=== PATIENT | female | born 2000 | race Caucasian/White ===

== ENCOUNTER 2019-07-17 09:34 | Emergency (ER) | payer OTHER ==
[~2019-07-17] VITALS: Ht 172 cm; Wt 131.6 kg
[2019-07-17] MEDS ORDERED: BREX0.5T (09:56)
[2019-07-17] MEDS ORDERED: LEVO50TA6 (09:56)
--- NOTE | 2019-07-17 11:00 | NUR ---
ASSUMED CARE OF THIS PATIENT AT THIS TIME. INTRODUCED SELF. PATIENT IS A&OX4, DENIES NEEDS AT THIS TIME. MONITORING MAINTAINED. PATIENT IS CALM IN ROOM AND FATHER IS ESCORTED TO BE WITH HIS DAUGHTER WITH HER PERMISSION.
--- NOTE | 2019-07-17 11:01 | ED Psychosocial ---
General Chief Complaint: Psych/Social Disorder Stated Complaint: SHOOTING PAINS IN ARM,HARD TO BREATE,LIGHTHEADED Nursing Triage Note: TO ROOM 08 VIA AMB FROM HOME. STATES HER RIGHT ARM HAS HAD NUMBNESS AND TINGLING X 3 MONTHS AND THIS MORNING WOKE UP WITH THAT FEELING IN HER LEFT ARM CAUSING HER TO BECOME ANXIOUS WITH SOA AND TIGHTNESS IN HER CHEST. Source: patient Exam Limitations: no limitations History of Present Illness Date Seen by Provider: Jul 17, 2019 Time Seen by Provider: 10:45 Initial Comments There are bilateral arm pain. This is been for about 3 months she developed some right arm pain upon awakening that radiates from her neck although down to her fingertips involving all fingers. The past few days is also involving the left upper arm. The pain is quite intense. She also states that she has some tightness in her chest, she feels confused and anxious area she has a headache, when asked how often she gets headaches she states "I don't know" Timing/Duration: constant Severity: moderate Associated Symptoms: anxiety Allergies and Home Medications Allergies Coded Allergies: morphine (Verified Allergy, Severe, BRADYCARDIA, 07/17/19) Patient Home Medication List Home Medication List Reviewed: Yes Review of Systems Constitutional: see HPI EENTM: see HPI Respiratory: no symptoms reported Cardiovascular: no symptoms reported Genitourinary: no symptoms reported Musculoskeletal: see HPI Skin: no symptoms reported Psychiatric/Neurological: See HPI, Anxiety Past Qbghrxo-Qdmmqh-Hcphes Hx Patient Social History Alcohol Use: Denies Use Recreational Drug Use: No Smoking Status: Current Everyday Smoker Recent Foreign Travel: No Contact w/Someone Who Travel: No Recent Infectious Disease Expo: No Recent Hopitalizations: No Seasonal Allergies Seasonal Allergies: No Past Medical History Surgeries: Yes (JAW, DENTAL) Respiratory: No Cardiac: No Neurological: No Genitourinary: No Gastrointestinal: No Musculoskeletal: No Endocrine: Yes Hypothyroidsim HEENT: No Cancer: No Psychosocial: Yes Anxiety, Depression Integumentary: No Physical Exam Vital Signs - First Documented 07/17/19 09:42 Temp 36.7 Pulse 74 Resp 16 B/P (MAP) 128/77 (94) Pulse Ox 98 O2 Delivery Room Air Capillary Refill : Less Than 3 Seconds Height, Weight, BMI Height: '" Weight: lbs. oz. kg; 44.00 BMI Method: General Appearance: WD/WN, no apparent distress, obese, other (flat affect) HEENT: PERRL/EOMI, normal ENT inspection, TMs normal Neck: non-tender, full range of motion Respiratory: normal breath sounds, no respiratory distress, no accessory muscle use Cardiovascular: regular rate, rhythm, no murmur Gastrointestinal: normal bowel sounds, non tender, soft Extremities: normal range of motion, non-tender Neurologic/Psychiatric: alert, normal mood/affect, oriented x 3 Appearance/Memory: appropriate appearance, appropriate insight, neat Behavior/Eye Contact: cooperative, good eye contact Skin: normal color, warm/dry Elbow flexion and extension strength 5 out of 5 bilaterally, med admin strength 5 out of 5 bilaterally Progress/Results/Core Measures Results/Orders Lab Results Laboratory Tests Test 07/17/19 11:02 07/17/19 11:10 Range/Units Urine Color YELLOW Urine Clarity CLEAR Urine pH 5.5 5-9 Urine Specific [place] 1.010 L 1.016-1.022 Urine Protein NEGATIVE NEGATIVE Urine Glucose (UA) NEGATIVE NEGATIVE Urine Ketones NEGATIVE NEGATIVE Urine Nitrite NEGATIVE NEGATIVE Urine Bilirubin NEGATIVE NEGATIVE Urine Urobilinogen 0.2 < = 1.0 MG/DL Urine Leukocyte Esterase NEGATIVE NEGATIVE Urine RBC (Auto) NEGATIVE NEGATIVE Urine RBC NONE /HPF Urine WBC NONE /HPF Urine Squamous Epithelial Cells 0-5 /HPF Urine Crystals NONE /LPF Urine Bacteria FEW H /HPF Urine Casts NONE /LPF Urine Mucus NEGATIVE /LPF Urine Culture Indicated YES Urine Opiates Screen NEGATIVE NEGATIVE Urine Oxycodone Screen NEGATIVE NEGATIVE Urine Methadone Screen NEGATIVE NEGATIVE Urine Propoxyphene Screen NEGATIVE NEGATIVE Urine Barbiturates Screen NEGATIVE NEGATIVE Ur Tricyclic Antidepressants Screen NEGATIVE NEGATIVE Urine Phencyclidine Screen NEGATIVE NEGATIVE Urine Amphetamines Screen NEGATIVE NEGATIVE Urine Methamphetamines Screen NEGATIVE NEGATIVE Urine Benzodiazepines Screen NEGATIVE NEGATIVE Urine Cocaine Screen NEGATIVE NEGATIVE Urine Cannabinoids Screen NEGATIVE NEGATIVE White Blood Count 7.9 4.3-11.0 10^3/uL Red Blood Count 5.13 4.35-5.85 10^6/uL Hemoglobin 14.9 11.5-16.0 G/DL Hematocrit 44 35-52 % Mean Corpuscular Volume 85 80-99 FL Mean Corpuscular Hemoglobin 29 25-34 PG Mean Corpuscular Hemoglobin Concent 34 32-36 G/DL Red Cell Distribution Width 13.5 10.0-14.5 % Platelet Count 227 130-400 10^3/uL Mean Platelet Volume 10.4 7.4-10.4 FL Neutrophils (%) (Auto) 57 42-75 % Lymphocytes (%) (Auto) 33 12-44 % Monocytes (%) (Auto) 7 0-12 % Eosinophils (%) (Auto) 2 0-10 % Basophils (%) (Auto) 0 0-10 % Neutrophils # (Auto) 4.5 1.8-7.8 X 10^3 Lymphocytes # (Auto) 2.6 1.0-4.0 X 10^3 Monocytes # (Auto) 0.6 0.0-1.0 X 10^3 Eosinophils # (Auto) 0.2 0.0-0.3 10^3/uL Basophils # (Auto) 0.0 0.0-0.1 10^3/uL Sodium Level 139 135-145 MMOL/L Potassium Level 4.0 3.6-5.0 MMOL/L Chloride Level 110 H 98-107 MMOL/L Carbon Dioxide Level 17 L 21-32 MMOL/L Anion Gap 12 5-14 MMOL/L Blood Urea Nitrogen 8 7-18 MG/DL Creatinine 0.75 0.60-1.30 MG/DL Estimat Glomerular Filtration Rate > 60 BUN/Creatinine Ratio 11 Glucose Level 97 70-105 MG/DL Calcium Level 9.2 8.5-10.1 MG/DL Corrected Calcium 9.1 8.5-10.1 MG/DL Total Bilirubin 0.3 0.1-1.0 MG/DL Aspartate Amino Transf (AST/SGOT) 28 5-34 U/L Alanine Aminotransferase (ALT/SGPT) 40 0-55 U/L Alkaline Phosphatase 68 40-136 U/L Total Protein 7.1 6.4-8.2 GM/DL Albumin 4.1 3.2-4.5 GM/DL Serum Test, Qualitative NEGATIVE NEGATIVE My Orders Orders - MATEO QUINTANILLA APRN Cbc With Automated Diff (07/17/19 10:46) Comprehensive Metabolic Panel (07/17/19 10:46) Hcg,Qualitative Serum (07/17/19 10:46) Ua Culture If Indicated (07/17/19 11:05) Drug Screen Stat (Urine) (07/17/19 11:05) Ct Cervical Spine Wo (07/17/19 11:05) Alprazolam Tablet (Xanax Tablet) (07/17/19 11:15) Ketorolac Injection (Toradol Injection) (07/17/19 11:15) Alprazolam Tablet (Xanax Tablet) (07/17/19 11:15) Urine Culture (07/17/19 11:02) Free T4 (Free Thyroxine) (07/17/19 12:03) Thyroid Stimulating Hormone (07/17/19 12:03) Medications Given in ED Current Medications Medications Dose Ordered Sig/Juanjo Route Start Time Stop Time Status Last Admin Dose Admin Alprazolam 0.5 mg ONCE ONCE PO 07/17/19 11:15 07/17/19 11:16 DC 07/17/19 11:22 0.5 MG Ketorolac Tromethamine 60 mg ONCE ONCE IM 07/17/19 11:15 07/17/19 11:16 DC 07/17/19 11:22 60 MG Vital Signs/I&O 07/17/19 09:42 Temp 36.7 Pulse 74 Resp 16 B/P (MAP) 128/77 (94) Pulse Ox 98 O2 Delivery Room Air Blood Pressure Mean: 94 Diagnostic Imaging Diagonstic Imaging: CT Comments NAME: KEZIA [facility] REC#: [id number] PT STATUS: REG ER : 2000 PHYSICIAN: MATEO QUINTANILLA APRN ADMIT DATE: 07/17/19/ER Draft Date of Exam:07/17/19 CT CERVICAL SPINE WO PROCEDURE: CT cervical spine without contrast. TECHNIQUE: Multiple contiguous axial images were obtained through the cervical spine without the use of intravenous contrast. Sagittal and coronal reformations were then performed. Auto Exposure Controls were utilized during the CT exam to meet ALARA standards for radiation dose reduction. INDICATION: Intermittent neck pain for approximately 3 months. Pins and needles tingling through bilateral upper extremities with increased frequency over the past week. CORRELATION STUDY: None FINDINGS: The cervical curvature and alignment are within normal limits. The overall vertebral body heights and disc spaces are fairly well preserved. No acute fracture deformity or subluxation is present. No paraspinous hematoma is visualized. There is rather pronounced number of bilateral cervical lymph nodes, nonspecific to etiology and/or significance. IMPRESSION: 1. No CT evidence for acute cervical spine abnormality. Given symptoms, if further evaluation is desired, cervical spine MRI would be recommended. 2. Rather prominent number of bilateral cervical lymph nodes, nonspecific to etiology and/or significance. Dictated on workstation # [id number] Dict: 07/17/19 1201 Trans: 07/17/19 1204 DO [id number] Interpreted by: BALWINDER VELASQUEZ DO Electronically signed by: Departure Impression Primary Impression: Paresthesias Additional Impressions: Anxiety Cervical lymphadenopathy Disposition: HOME, SELF-CARE Condition: Stable Departure-Patient Inst. Decision time for Depature: 12:14 Referrals: DIGNA HOANG MD (PCP) Primary Care Physician [facility] (Family) Primary Care Physician Patient Instructions: LYMPH NODE SWELLING Add. Discharge Instructions: 1. You need to follow-up with your primary care doctor to schedule an MRI of your neck to further evaluate for any bulging disks or evidence of nerve im pingement that may be contributing to her symptoms. Take steroids as directed in the next few days. He also need to be reevaluated in regards to the lymph nodes in her neck to ensure this resolves. All discharge instructions reviewed with patient and/or family. Voiced understanding. Scripts Hydrocodone/Acetaminophen ([place] 5-325 Tablet) 1 Each Tablet 1 TAB PO Q4-6HR for Pain MDD 10 TABS for 7 Days, #10 TAB Prov: MATEO QUINTANILLA APRN 07/17/19 Prednisone (Prednisone) 20 Mg Tab 40 MG PO DAILY, #6 TAB 0 Refills Prov: MATEO QUINTANILLA APRN 07/17/19 MATEO QUINTANILLA APRN Jul 17, 2019 11:01
[2019-07-17] MEDS ORDERED: ALPRAZolam 0.25 MG (XANAX) TAB PO ONE ×2 (11:15)
[2019-07-17] MEDS ORDERED: KETOROLAC 60 MG/2 ML VIAL IM ONE (11:15)
[2019-07-17 11:22] LABS: BASOPHILS % (AUTO) 0 % (0-10); EOSINOPHILS # (AUTO) 0.2 10^3/uL (0.0-0.3); EOSINOPHILS % (AUTO) 2 % (0-10); HEMATOCRIT 44 % (35-52); HEMOGLOBIN 14.9 G/DL (11.5-16.0); LYMPHOCYTES # (AUTO) 2.6 X 10^3 (1.0-4.0); LYMPHOCYTES % (AUTO) 33 % (12-44); MEAN CORPUSCULAR HEMOGLOBIN 29 PG (25-34); MEAN CORPUSCULAR HGB CONC 34 G/DL (32-36); MEAN CORPUSCULAR VOLUME 85 FL (80-99); MEAN PLATELET VOLUME 10.4 FL (7.4-10.4); MONOCYTES # (AUTO) 0.6 X 10^3 (0.0-1.0); MONOCYTES % (AUTO) 7 % (0-12); NEUTROPHILS # (AUTO) 4.5 X 10^3 (1.8-7.8); NEUTROPHILS % (AUTO) 57 % (42-75); PLATELET COUNT 227 10^3/uL (130-400); RED CELL DISTRIBUTION WIDTH 13.5 % (10.0-14.5); WHITE BLOOD COUNT 7.9 10^3/uL (4.3-11.0)
[2019-07-17 11:39] LABS: BILIRUBIN,URINE NEGATIVE (NEGATIVE); CLARITY,URINE CLEAR; COLOR,URINE YELLOW; GLUCOSE, URINE (UA) NEGATIVE (NEGATIVE); KETONES,URINE NEGATIVE (NEGATIVE); LEUKOCYTE ESTERASE ,URINE NEGATIVE (NEGATIVE); NITRITE,URINE NEGATIVE (NEGATIVE); PH,URINE 5.5 (5-9); PROTEIN,URINE NEGATIVE (NEGATIVE)
[2019-07-17 11:50] LABS: ALANINE AMINOTRANSFERASE 40 U/L (0-55); ALBUMIN 4.1 GM/DL (3.2-4.5); ALKALINE PHOSPHATASE 68 U/L (40-136); BILIRUBIN,TOTAL 0.3 MG/DL (0.1-1.0); BUN/CREATININE RATIO 11; CALCIUM 9.2 MG/DL (8.5-10.1); CARBON DIOXIDE 17 MMOL/L (21-32); CHLORIDE 110 MMOL/L (98-107); CREATININE SERUM 0.75 MG/DL (0.60-1.30); GFR ESTIMATED > 60; GLUCOSE 97 MG/DL (70-105); SODIUM 139 MMOL/L (135-145); TOTAL PROTEIN 7.1 GM/DL (6.4-8.2)
[2019-07-17 11:56] LABS: BACTERIA,URINE FEW /HPF; SQUAMOUS EPITHELIAL CELL,UR 0-5 /HPF
[2019-07-17 11:57] LABS: AMPHETAMINE SCREEN, URINE NEGATIVE (NEGATIVE); BARBITURATE SCREEN URINE NEGATIVE (NEGATIVE); BENZODIAZEPINES SCREEN URINE NEGATIVE (NEGATIVE); CANNABINOID SCREEN, URINE NEGATIVE (NEGATIVE); COCAINE SCREEN URINE NEGATIVE (NEGATIVE); METHADONE STAT NEGATIVE (NEGATIVE); METHAMPHETAMINE SCREEN URINE S NEGATIVE (NEGATIVE); OPIATE SCREEN URINE NEGATIVE (NEGATIVE); OXYCODONE STAT NEGATIVE (NEGATIVE); PROPOXYPHENE STAT NEGATIVE (NEGATIVE); TRICYCLIC ANTIDEPRESSANTS SCRE NEGATIVE (NEGATIVE)
--- NOTE | 2019-07-17 12:05 | Diagnostic Imaging Report ---
PROCEDURE: CT cervical spine without contrast. TECHNIQUE: Multiple contiguous axial images were obtained through the cervical spine without the use of intravenous contrast. Sagittal and coronal reformations were then performed. Auto Exposure Controls were utilized during the CT exam to meet ALARA standards for radiation dose reduction. INDICATION: Intermittent neck pain for approximately 3 months. Pins and needles tingling through bilateral upper extremities with increased frequency over the past week. CORRELATION STUDY: None FINDINGS: The cervical curvature and alignment are within normal limits. The overall vertebral body heights and disc spaces are fairly well preserved. No acute fracture deformity or subluxation is present. No paraspinous hematoma is visualized. There is rather pronounced number of bilateral cervical lymph nodes, nonspecific to etiology and/or significance. IMPRESSION: 1. No CT evidence for acute cervical spine abnormality. Given symptoms, if further evaluation is desired, cervical spine MRI would be recommended. 2. Rather prominent number of bilateral cervical lymph nodes, nonspecific to etiology and/or significance. Dictated by: Dictated on workstation # [id number]
[2019-07-17] MEDS ORDERED: PRD20T PO (12:16)
[2019-07-17] MEDS ORDERED: HYDR-4226 PO (12:16)
[2019-07-17 12:29] VITALS: BP 115/80
[2019-07-17 12:44] LABS: FREE T4 (FREE THYROXINE) 0.8 NG/DL (0.70-1.48)
== END 2019-07-17 12:29 | disposition home or self-care (01) ==
LOC: ER 09:36
DX: R20.2 Paresthesia of skin (principal); F41.9 Anxiety disorder, unspecified; R59.0 Localized enlarged lymph nodes; E03.9 Hypothyroidism, unspecified; F32.9 Major depressive disorder, single episode, unspecified; F17.200 Nicotine dependence, unspecified, uncomplicated; Z88.5 Allergy status to narcotic agent
CPT/HCPCS: 36415; 72125; 80053; 80306; 81000; 84439; 84443; 84703; 85025; 87088

== ENCOUNTER → 2019-08-03 | Outpatient (CLI) | payer OTHER ==
[~2019-08-03] MED LIST: BREX0.5T; HYDR-4226 PO; LEVO50TA6; PRD20T PO
--- NOTE | 2019-08-03 14:28 | Diagnostic Imaging Report ---
PROCEDURE: MR imaging cervical spine without contrast. TECHNIQUE: Multiplanar, multisequence MR imaging of the cervical spine was performed without contrast. INDICATION: Neck and spine pain increasing in severity. COMPARISON: No prior studies are available for comparison. FINDINGS: Curvature and alignment of the cervical spine is normal. Vertebral body marrow signal is normal. No geographic marrow lesion is seen. There is normal height and signal intensity to the cervical intervertebral discs. Cervical cord shows normal homogeneous signal intensity. No abnormal cord signal is identified. The craniocervical junction is unremarkable. No focal disc protrusion is seen. There is no central canal or neural foraminal narrowing. Paraspinous tissues are unremarkable. IMPRESSION: Unremarkable MRI of the cervical spine without contrast. Dictated by: Dictated on workstation # [id number]
== END ==
LOC: RAD 13:42
PROVIDERS: ATTEND Nurse Practitioner Family
DX: M54.2 Cervicalgia (principal); R20.2 Paresthesia of skin
CPT/HCPCS: 72141